=== PATIENT | male | born 1955 | race Two or more races ===

== ENCOUNTER 2024-05-24 10:44 | Emergency (ER) | payer OTHER ==
[~2024-05-24] VITALS: Ht 175.3 cm; Wt 79.4 kg
[2024-05-24] MEDS ORDERED: 0.9 % SODIUM CHLORIDE 1,000 ML IV STA (11:39)
[2024-05-24] MEDS ORDERED: DEXAMETHASONE SODIUM PHOSPHATE 4 MG/ML VIAL IV STA (11:40)
[2024-05-24 12:05] LABS: HEMATOCRIT 44.4 % (39.0-48.0); HEMOGLOBIN 15.1 g/dL (13-16.00); MEAN CELL VOLUME 89.9 fL (80.0-100.00); MEAN CORPUSCULAR HEMOGLOBIN 30.7 pg (27.00-32.0); MEAN CORPUSCULAR HGB CONC 34.1 g/dl (32.0-36.0); PLATELET COUNT 229 K/uL (150-450); RED BLOOD COUNT 4.94 M/uL (4.00-6.00); RED CELL DISTRIBUTION WIDTH 13.4 % (11.5-14.5)
[2024-05-24 13:23] LABS: CALCIUM 8.7 mg/dL (8.5-10.1); CREATININE SERUM 0.84 mg/dL (0.70-1.30); GFR 91.14; POTASSIUM 4.11 mEq/L (3.5-5.1)
[2024-05-25] MEDS ORDERED: DRAMAMINE LESS25 MG PO (19:47)
[2024-05-25] MEDS ORDERED: ONDANSETRON ODT8 MG PO (19:47)
== END 2024-05-24 15:21 | disposition home or self-care (01) ==
LOC: ER 10:44
PROVIDERS: General Practice
DX: R42 Dizziness and giddiness (principal); I20.89 Other forms of angina pectoris; Z98.0 Intestinal bypass and anastomosis status; K57.32 Diverticulitis of large intestine without perforation or abscess without bleeding
CPT/HCPCS: 36415; 70450; 93005; 96365; 96366; 99284; J1100; J7030

== ENCOUNTER 2024-05-25 13:32 | Emergency (ER) | payer OTHER ==
[~2024-05-25] VITALS: Ht 170.2 cm; Wt 72.6 kg
[2024-05-25] MEDS ORDERED: ONDANSETRON HCL 2 MG/ML VIAL IV STA (14:07)
[2024-05-25] MEDS ORDERED: DIAZEPAM 5 MG TABLET PO ONE (14:15)
[2024-05-25 14:29] LABS: HEMATOCRIT 43.9 % (39.0-48.0); HEMOGLOBIN 15.1 g/dL (13-16.00); MEAN CORPUSCULAR HEMOGLOBIN 30.9 pg (27.00-32.0); MEAN CORPUSCULAR HGB CONC 34.4 g/dl (32.0-36.0); PLATELET COUNT 242 K/uL (150-450); RED BLOOD COUNT 4.87 M/uL (4.00-6.00); RED CELL DISTRIBUTION WIDTH 13.3 % (11.5-14.5)
[2024-05-25 14:51] LABS: ALBUMIN 3.7 gm/dL (3.4-5.0); BILIRUBIN TOTAL 1.23 mg/dL (0.3-1.2); CREATININE SERUM 0.85 mg/dL (0.70-1.30); GFR 89.9; GLOBULINA 3.2 G/DL (2.4-3.5); POTASSIUM 3.57 mEq/L (3.5-5.1); TOTAL PROTEIN 6.9 gm/dL (6.4-8.2)
[2024-05-25] MEDS ORDERED: DIPHENHYDRAMINE HCL 50 MG/ML VIAL 1ML IV ONE (17:45)
[2024-05-25] MEDS ORDERED: 0.9 % SODIUM CHLORIDE 1,000 ML IV SCH (17:45)
[2024-05-25] MEDS ORDERED: MECLIZINE HCL 25 MG TABLET PO ONE (17:45)
[2024-05-25] MEDS ORDERED: DRAMAMINE LESS25 MG PO (19:47)
[2024-05-25] MEDS ORDERED: ONDANSETRON ODT8 MG PO (19:47)
== END 2024-05-25 19:55 | disposition home or self-care (01) ==
LOC: ER 13:32
PROVIDERS: Emergency Medicine
DX: R42 Dizziness and giddiness (principal)
CPT/HCPCS: 36415; 96365; 99283; J1200; J3490